=== PATIENT | male | born 1990 | race Caucasian/White ===

== ENCOUNTER 2017-05-27 14:02 | Emergency (ER) | payer BC, OTHER ==
[~2017-05-27] VITALS: Ht 170.2 cm; Wt 82.3 kg
[2017-05-27 14:04] VITALS: TEMP 36.3; Ht 170.2 cm; Wt 82.3 kg
[2017-05-27] MEDS ORDERED: SODIUM CHLORIDE 0.9% 1000ML 1,000 ML IV STA (14:37)
[2017-05-27] MEDS ORDERED: ONDANSETRON INJ 2 MG/ML 2 ML VIAL IV STA (14:37)
--- NOTE | 2017-05-27 14:40 | EMERGENCY ROOM VISIT NOTE ---
History Report prepared by Alfred: Nate Saenz Under the Supervision of: Dr. Fabrizio Lund M.D. First contact with patient: 14:13 Chief Complaint: GI ASSESSMENT Stated Complaint: LOW BP,STOMACH PAIN,DEHYDRATED Nursing Triage Summary: Abd pain, diarrhea x 5 days. See orange call in note. History of Present Illness The patient is a 26 year old white male with a past medical history of ADHD and knee surgeries who presents to the ED with a cc of intermittent diarrhea that he states is black and sharp lower abdominal pain beginning four five days ago. Positive lack of appetite, chills, and nausea. Negative vomiting, hematochezia, urinary symptoms, penis pain, scrotum pain, leg swelling, cough, recent antibiotics, or new foods. He states that he has 6-8 BM per day. He states that something similar happened a month ago, though it went away. He takes Adderall, and he uses chewing tobacco. Source of History: patient Onset: 5 days ago Position: abdomen, other (global) Quality: sharp, other (diarrhea) Timing: intermittent Associated Symptoms: + fevers, + nausea, No cough, No vomiting, No hematochezia, No urinary symptoms Review of Systems See HPI for pertinent positives and negatives. A total of ten systems were reviewed and were otherwise negative. Past Medical & Surgical Medical Problems: (1) ADHD (2) H/O knee surgery Social History Smoking Status: Never Smoker Marital Status: single Occupation Status: employed Current/Historical Medications Scheduled Amphetamine-Dextroamphetamine 10MG (Adderall 10MG), 1 TAB PO DAILY Dicyclomine Hcl (Bentyl), 1 TAB PO QID Ondasetron Odt (Zofran Odt), 4 MG SL Q6H Scheduled PRN Tramadol (Ultram), 50 MG PO Q8H PRN for Pain Physical Exam Vital Signs Date Time Temp Pulse Resp B/P (MAP) Pulse Ox O2 Delivery O2 Flow Rate FiO2 05/27/17 17:20 78 16 121/73 98 05/27/17 16:13 75 14 119/79 98 Room Air 05/27/17 14:25 75 20 142/75 99 Room Air 77 131/77 82 128/70 05/27/17 14:04 36.3 76 16 136/84 96 Room Air Physical Exam GENERAL: Awake, alert, well-appearing, NAD HENT: Normocephalic, atraumatic. EYES: Normal conjunctiva. Sclera non-icteric. NECK: Supple. No nuchal rigidity. FROM. RESPIRATORY: CTAB, no rhonchi, wheezing, crackles CARDIAC: RRR, no MRG ABDOMEN: Mild lwer and epigastric tenderness w/o rebounding or guarding. Negative Bernal's and obturator psoas. Soft, ND, BS+ MSK: No CVA TTP. No chest wall TTP, no LE edema : No testicular or penis pain. NEURO: GCS 15, CN 2-12 intact, moves all 4s on command SKIN: No rash or jaundice noted. Medical Decision & Procedures Laboratory Results 05/27/17 14:20 Red Blood Count 4.94, Mean Corpuscular Volume 87.7, Mean Corpuscular Hemoglobin 31.0, Mean Corpuscular Hemoglobin Concent 35.3, Mean Platelet Volume 11.0, Neutrophils (%) (Auto) 70.2, Lymphocytes (%) (Auto) 18.9, Monocytes (%) (Auto) 9.2, Eosinophils (%) (Auto) 0.9, Basophils (%) (Auto) 0.6, Neutrophils # (Auto) 3.83, Lymphocytes # (Auto) 1.03, Monocytes # (Auto) 0.50, Eosinophils # (Auto) 0.05, Basophils # (Auto) 0.03 05/27/17 14:20 Test 05/27/17 14:20 05/27/17 15:02 05/27/17 15:16 White Blood Count 5.45 K/uL (4.8-10.8) Red Blood Count 4.94 M/uL (4.7-6.1) Hemoglobin 15.3 g/dL (14.0-18.0) Hematocrit 43.3 % (42-52) Mean Corpuscular Volume 87.7 fL (80-100) Mean Corpuscular Hemoglobin 31.0 pg (25-34) Mean Corpuscular Hemoglobin Concent 35.3 g/dl (32-36) Platelet Count 156 K/uL (130-400) Mean Platelet Volume 11.0 fL (7.4-10.4) Neutrophils (%) (Auto) 70.2 % Lymphocytes (%) (Auto) 18.9 % Monocytes (%) (Auto) 9.2 % Eosinophils (%) (Auto) 0.9 % Basophils (%) (Auto) 0.6 % Neutrophils # (Auto) 3.83 K/uL (1.4-6.5) Lymphocytes # (Auto) 1.03 K/uL (1.2-3.4) Monocytes # (Auto) 0.50 K/uL (0.11-0.59) Eosinophils # (Auto) 0.05 K/uL (0-0.5) Basophils # (Auto) 0.03 K/uL (0-0.2) RDW Standard Deviation 40.7 fL (36.4-46.3) RDW Coefficient of Variation 12.7 % (11.5-14.5) Immature Granulocyte % (Auto) 0.2 % Immature Granulocyte # (Auto) 0.01 K/uL (0.00-0.02) Urine Color YELLOW Urine Appearance CLEAR (CLEAR) Urine pH 5.5 (4.5-7.5) Urine Specific [place] 1.015 (1.000-1.030) Urine Protein NEG (NEG) Urine Glucose (UA) NEG (NEG) Urine Ketones NEG (NEG) Urine Occult Blood NEG (NEG) Urine Nitrite NEG (NEG) Urine Bilirubin NEG (NEG) Urine Urobilinogen NEG (NEG) Urine Leukocyte Esterase NEG (NEG) Anion Gap 4.0 mmol/L (3-11) Est Creatinine Clear Calc Drug Dose 103.6 ml/min Estimated GFR () 106.1 Estimated GFR (Non- 91.5 BUN/Creatinine Ratio 9.0 (10-20) Calcium Level 8.9 mg/dl (8.5-10.1) Total Bilirubin 0.6 mg/dl (0.2-1) Direct Bilirubin 0.2 mg/dl (0-0.2) Aspartate Amino Transf (AST/SGOT) 21 U/L (15-37) Alanine Aminotransferase (ALT/SGPT) 40 U/L (12-78) Alkaline Phosphatase 83 U/L (45-117) Total Protein 7.6 gm/dl (6.4-8.2) Albumin 3.8 gm/dl (3.4-5.0) Lipase 166 U/L (73-393) Bedside Lactic Acid Venous 0.52 mmol/L (0.90-1.70) Venous Blood pH 7.35 (7.36-7.41) Venous Blood Partial Pressure CO2 50 mmHg (38.0-50.0) Venous Blood Partial Pressure O2 38 mmHg Venous Blood HCO3 27 mmol/L Venous Blood Oxygen Saturation 69.7 % Venous Blood Base Excess 0.4 mEq/L Laboratory results reviewed by me Medications Administered Medications (Trade) Dose Ordered Sig/Jeromy Route Start Time Stop Time Status Last Admin Dose Admin Ondansetron HCl (Zofran Inj) 4 mg NOW STAT IV 05/27/17 14:37 05/27/17 14:40 DC 05/27/17 15:07 4 MG Sodium Chloride 1,000 ml @ 999 mls/hr Q1H1M STAT IV 05/27/17 14:37 05/27/17 15:37 DC 05/27/17 14:20 999 MLS/HR Dicyclomine HCl (Bentyl Inj) 20 mg NOW ONCE IM 05/27/17 14:45 05/27/17 14:46 DC 05/27/17 15:08 20 MG ED Course 1425: The patient was evaluated in room C3. A complete history and physical exam was performed. 1649: I reevaluated the patient. Discussed results and discharge instructions: He verbalized understanding and agreement. The patient is ready for discharge. Medical Decision The patient is a 26 year old white male with a past medical history of ADHD and knee surgeries who presents to the ED with a cc of intermittent diarrhea that he states is black and sharp lower abdominal pain beginning four five days ago. Positive lack of appetite, chills, and nausea. Negative vomiting, hematochezia, urinary symptoms, penis pain, scrotum pain, leg swelling, cough, recent antibiotics, or new foods. Differential Diagnoses include: IBD, IBS, UTI, colitis. Patient was seen and evaluated patient and referred his he has had persistent lower abdominal pain. Patient does not have any nausea or vomiting and denied any urinary symptoms. Patient was able to tolerate by mouth but was concerned as he was having increased bowel movements. Patient was given IV fluids medical management and had blood work and a urine that was sent off for analysis. Patient's UA was taken for infection patient allegedly to her normal patient had no petechiae and his white count was normal. I discussed this is likely a viral enteritis. Patient was told to increase his hydration as well as fiber in his diet to help with stool bulking. Patient was given additional medications and told he could take [id number] medications as well for further management. Patient was given a follow-up with GI if he had persistent issues. Patient was told that we cannot fully rule out things like appendicitis that his CT scan however given his signs and symptoms was less likely as he was able to tolerate by mouth and had a negative obturator's and psoas tenotomy nausea vomiting. Patient was agreeable to the plan of care patient was instructed to follow up discharge, and return precautions. Patient agreed with the plan of care and patient was discharged home. Medication Reconcilliation Current Medication List: was personally reviewed by me Blood Pressure Screening Patient's blood pressure: Normal blood pressure Impression Primary Impression: Enteritis Additional Impression: Lower abdominal pain Scribe Attestation The scribe's documentation has been prepared under my direction and personally reviewed by me in its entirety. I confirm that the note above accurately reflects all work, treatment, procedures, and medical decision making performed by me. Departure Information Dispostion Home / Self-Care Prescriptions Dicyclomine Hcl (BENTYL) 20 Mg Tab 1 TAB PO QID for 7 Days, #28 TAB Prov: Fabrizio Lund M.D. 05/27/17 Tramadol (Ultram) 50 Mg Tab 50 MG PO Q8H Y for Pain, #14 TAB Prov: Fabrizio Lund M.D. 05/27/17 Ondasetron Odt (ZOFRAN ODT) 4 Mg Tab 4 MG SL Q6H for Nausea, #6 TAB Prov: Fabrizio Lund M.D. 05/27/17 Referrals No Doctor, Assigned (PCP) Anuradha Peguero, DO Forms HOME CARE DOCUMENTATION FORM, IMPORTANT VISIT INFORMATION Patient Instructions Dehydration, Diarrhea, Diet High Fiber Dc, My [facility] Additional Instructions Please return to the emergency department if you have worsening or recurrent symptoms not amenable to at-home treatment. Please call for a follow-up appointment with her primary care physician. Please take your medications as prescribed. If you have other concerns and/or complaints please feel free to also call your primary care physician's office or return the ED for further evaluation, management, and treatment. Please follow up with Dr. Peguero or another labor economics teacher of your choosing if you have persistent symptoms. Problem Qualifiers
[2017-05-27] MEDS ORDERED: DICYCLOMINE HCL 10 MG/ML 2 ML AMP IM ONE (14:45)
[2017-05-27] MEDS ORDERED: AMPH10TA2 PO (14:48)
[2017-05-27 14:53] LABS: URINE APPEARANCE CLEAR (CLEAR); URINE BILIRUBIN NEG (NEG); URINE COLOR YELLOW; URINE NITRITE NEG (NEG); URINE PH 5.5 (4.5-7.5); URINE SPECIFIC GRAVITY 1.015 (1.000-1.030); UROBILINOGEN NEG (NEG); ZZUR CULT IF INDIC CLEAN CATCH NO
[2017-05-27 14:58] LABS: MANUAL MICROSCOPIC REQUIRED? NO; REVIEW REQ? NO
[2017-05-27] MEDS: MoRPHine SULFATE 4 MG/ML 1 ML CARP\\VIAL IV STA ×2 (15:07→15:09)
[2017-05-27 15:35] LABS: VEN BLD GAS O2 SATURATION 69.7 %; VEN BLOOD GAS BASE EXCESS 0.4 mEq/L
[2017-05-27 15:41] LABS: BASO % 0.6 %; BASO ABS # 0.03 K/uL (0-0.2); COMPLETE YES; EOS % 0.9 %; HEMATOCRIT 43.3 % (42-52); IG% 0.2 %; LYMPH % 18.9 %; LYMPH ABS # 1.03 K/uL (1.2-3.4); MEAN CELL VOLUME 87.7 fL (80-100); MEAN CORPUSCULAR HGB CONC 35.3 g/dl (32-36); MONO % 9.2 %; NEUT % 70.2 %; PLATELET COUNT 156 K/uL (130-400); RED BLOOD COUNT 4.94 M/uL (4.7-6.1); WHITE BLOOD COUNT 5.45 K/uL (4.8-10.8)
[2017-05-27 15:54] LABS: CALCIUM 8.9 mg/dl (8.5-10.1); CREATININE 1.1 mg/dl (0.60-1.40)
[2017-05-27] MEDS ORDERED: TRAM-10 PO (17:03)
[2017-05-27] MEDS ORDERED: DICY20TA35 PO (17:03)
[2017-05-27] MEDS ORDERED: ONDA4TAB10 SL (17:03)
[2017-05-27 17:20] VITALS: BP 121/73; PULSE 78; O2SAT 98
== END 2017-05-27 17:20 | disposition home or self-care (01) ==
LOC: C.EDB 14:03 → C.EDC 17:20
DX: K52.9 Noninfective gastroenteritis and colitis, unspecified (principal); F90.9 Attention-deficit hyperactivity disorder, unspecified type; Z79.899 Other long term (current) drug therapy; Z98.890 Other specified postprocedural states